=== PATIENT | male | born 1975 | race Caucasian/White ===

== ENCOUNTER 2020-08-13 08:08 | Emergency (ER) | payer MEDICAID ==
[~2020-08-13] VITALS: Ht 167.6 cm; Wt 63.6 kg
[2020-08-13] MEDS ORDERED: BACITRACIN 0.9 GM PACKET OINTMENT TP ONE (08:30)
[2020-08-13] MEDS ORDERED: PERTUSS(ACELL),DIPH,TET VAC/PF 0.5 ML SYRINGE IM. ONE (08:30)
[2020-08-13] MEDS ORDERED: LIDOCAINE 1% 10 ML VIAL SQ ONE (08:30)
[2020-08-13 10:12] VITALS: BP 117/69
== END 2020-08-13 10:30 | disposition home or self-care (01) ==
LOC: EMS 08:12
DX: S61.012A Laceration without foreign body of left thumb without damage to nail, initial encounter (principal); W45.8XXA Other foreign body or object entering through skin, initial encounter; Y93.89 Activity, other specified; Y92.89 Other specified places as the place of occurrence of the external cause; Y99.8 Other external cause status
CPT/HCPCS: 12002; 90471; 90715; 99283; J3490

== ENCOUNTER 2020-08-25 14:51 | Emergency (ER) | payer MEDICAID ==
[~2020-08-25] VITALS: Ht 172.7 cm; Wt 70.5 kg
[2020-08-25 14:55] VITALS: BP 121/71
[2020-08-25] MEDS ORDERED: BACITRACIN 0.9 GM PACKET OINTMENT TP ONE (15:15)
== END 2020-08-25 15:28 | disposition home or self-care (01) ==
LOC: EMS 14:56
DX: S61.012D Laceration without foreign body of left thumb without damage to nail, subsequent encounter (principal); Z48.02 Encounter for removal of sutures; W45.8XXD Other foreign body or object entering through skin, subsequent encounter
CPT/HCPCS: 99282; Z7502; Z7610